=== PATIENT | male | born 1985 | race Caucasian/White ===

== ENCOUNTER 2016-11-10 19:25 | Emergency (ER) | payer MEDICAID ==
[~2016-11-10] VITALS: Ht 167.6 cm; Wt 191.1 kg
[2016-11-10] MEDS ORDERED: ASPIRIN 81 MG TABLET CHEW PO ONE (20:00)
[2016-11-10] MEDS ORDERED: SODIUM CHLORIDE FLUSH 10ML SYR IVF ONE (20:00)
[2016-11-10] MEDS ORDERED: ONDANSETRON 2MG/ML, 2ML IVPush ONE (20:00)
[2016-11-10] MEDS ORDERED: ONDANSETRON 2MG/ML, 2ML ONE (20:32)
[2016-11-10] MEDS ORDERED: ASPIRIN 81 MG TABLET CHEW ONE (20:32)
[2016-11-10 20:46] LABS: HEMATOCRIT 47.4 % (39.2-51.8); HEMOGLOBIN 15.6 g/dL (13.7-18.0)
[2016-11-10] MEDS ORDERED: LISI1TAB3 PO (20:51)
[2016-11-10 21:00] LABS: BLOOD UREA NITROGEN 11 mg/dL (7-18)
[2016-11-10 21:09] LABS: IS PT STATUS REG ER OR PRE ER? YES
[2016-11-10 21:38] VITALS: BP 108/66
== END 2016-11-10 22:05 | disposition home or self-care (01) ==
LOC: ED 21:56
DX: R07.89 Other chest pain (principal); R53.1 Weakness; I10 Essential (primary) hypertension
CPT/HCPCS: 36415; 71020; 80048; 82040; 84484; 85025; 93005; 99285